=== PATIENT | female | born 1935 | race Caucasian/White ===

== ENCOUNTER 2022-12-24 06:21 | Day surgery (SDC) | payer OTHER ==
[2022-12-24] MEDS ORDERED: EPINEPHRINE/PF 1 MG/ML AMP ONE (07:05)
[2022-12-24] MEDS ORDERED: BSS OPTHALMIC SOL 15 ML OPTH ONE (07:05)
[2022-12-24] MEDS ORDERED: TOBRADEX 0.3-0.1% OPTH OINTMENT ONE (07:05)
[2022-12-24] MEDS ORDERED: BALANCED SALT IRRIG PLAIN 500 ML IRR ONE (07:05)
[2022-12-24] MEDS ORDERED: POVIDONE-IODINE 5% EYE DROPS ONE (07:06)
[2022-12-24] MEDS ORDERED: DUOVISC 1 KIT OPTH ONE (07:06)
[2022-12-24 07:08] LABS: Absolute Lymphocytes (CBC) 0.9 K/uL (0.7-4.9); Hematocrit 40.3 % (36.0-45.0); Lymphocytes % 13.5 % (15.3-44.8); MCV 91.1 fL (80-100); RBC Red Blood Cell Count 4.43 M/uL (3.86-4.86)
[2022-12-24] MEDS ORDERED: propofoL 200 MG/20 ML VIAL IV ONE (07:08)
[2022-12-24] MEDS ORDERED: LIDOCAINE 2% MPF 5 ML VIAL ONE (07:08)
[2022-12-24] MEDS ORDERED: FENTANYL CITR 100 MCG/2 ML ONE (07:10)
[2022-12-24] MEDS ORDERED: ONDANSETRON 4 MG/2 ML VIAL ONE (07:10)
[2022-12-24] MEDS ORDERED: NA CHLORIDE 0.9% 1,000 ML ONE (07:15)
[2022-12-24] MEDS: CYCLOPENTOLATE 2% OPTH 2 ML ONE ×3 (07:17→07:39)
[2022-12-24] MEDS: TROPICAMIDE 1% OPTH 3 ML BOT ONE ×3 (07:17→07:39)
[2022-12-24] MEDS: PHENYLEPHRINE 10% OPTH 5ML ONE ×3 (07:17→07:39)
[2022-12-24] MEDS: KETOROLAC OPTHALMIC 5 ML BOT ONE ×3 (07:17→07:39)
[2022-12-24] MEDS ORDERED: EPHEDRINE SULF 50 MG/ML VIAL ONE (07:53)
[2022-12-24 08:36] LABS: Potassium 3.8 mEq/L (3.5-5.1)
[2022-12-24 10:17] VITALS: BP 127/76; TEMP 97; O2SAT 98
--- NOTE | 2022-12-24 15:43 | EKG ---
Test Date: 2022-12-24 Test Time: 07:06:14 Diesel Dragline Operator: KELIN MEASUREMENT RESULTS: Intervals: Rate: 68 ME: 206 QRSD: 78 QT: 460 QTc: 489 [place]: P: 25 ME: 206 QRS: -55 T: -18 INTERPRETIVE STATEMENTS: Normal sinus rhythm Pulmonary disease pattern Left anterior fascicular block Inferior infarct, age undetermined Abnormal ECG Compared to ECG 12/24/2022 07:05:11 Left anterior fascicular block now present First degree AV block no longer present Left-axis deviation no longer present Myocardial infarct finding still present Electronically Signed On 12-24-22 15:42:46 CDT by Dimitrios Castellanos
--- NOTE | 2022-12-24 15:43 | EKG ---
Test Date: 2022-12-24 Test Time: 07:05:11 Frame Trimmer: KELIN MEASUREMENT RESULTS: Intervals: Rate: 68 TX: 218 QRSD: 72 QT: 406 QTc: 431 [place]: P: 24 TX: 218 QRS: -54 T: -22 INTERPRETIVE STATEMENTS: Sinus rhythm with 1st degree AV block Left axis deviation Inferior infarct, age undetermined Abnormal ECG No previous ECG available for comparison Electronically Signed On 12-24-22 15:42:52 CDT by Dimitrios Castellanos
--- NOTE | 2022-12-24 19:32 | OP ---
Date of Procedure: 12/24/2022 Surgeon: Gold Oconnor MD Legal Instruments Examiner: None. Preoperative Diagnosis: Cataract, right eye. Postoperative Diagnosis: Cataract, right eye. Procedure Performed: Cataract extraction, right eye with placement of toric lens. Description Of Procedure: After being identified in the preoperative holding area and marked with th e patient sitting upright, the patient was taken back to the operating room where a time-out was perf ormed. Patient was then placed under general anesthesia and prepped and draped in normal sterile fas hion. Examination of the eye underneath the operating microscope revealed a well dilated pupil with visual evidence of our preoperative alignment alvarez, still evident using a Power marker and a Sinske y hook. The Power marker was aligned with the preoperative alvarez and a kimo was made at 21 degrees for one of the toric lens. The globe was grasped with a pair of 0.12 forceps and paracentesis wounds were made in the 6 o'clock and 12 o'clock position. The anterior chamber was filled with Viscoat an d the main phaco incision wound was made temporally using a 2.75 mm keratome in a triplanar fashion. Using a cystotome, a continuous curvilinear capsulorrhexis was initiated and completed with Utrata f orceps. Hydrodissection and hydrodelineation of the lens material was carried out using a [place] renetta dana, resulting in free rotation of the lens nucleus. The lens was thereafter removed in a standard d ivide and conquer technique. Once all 4 quadrants had been removed, the phaco handpiece was exchange d for bimanual irrigation and aspiration of handpieces and all remaining cortical material was remove d and the capsular bag polished. The capsular bag was then filled with Provisc and an Usman model SN 6AT4, power 21.0 diopters, serial #[id number] was implanted in the capsular bag and rotated into pos ition at 21 degrees and thereafter, the remaining viscoelastic was removed using the bimanual irrigat ion aspiration handpieces. The wounds were hydrated with a 30-gauge cannula and intra-ocular BSS in order to ensure water tightness. This was tested with Weck-Maryjane and once I was satisfied that the wou nds were in fact watertight, the lid speculum and drapes were removed. The patient was patched over TobraDex ointment having tolerated the procedure well being under general anesthesia the entire time. She was taken to the postoperative holding area and she is to follow up with myself, Dr. Gold shukla, at the [facility] [place] tomorrow morning. There were no complications. No drains plac ed. Implants are as above. MONICA/DONNAL Voice ID: [id number] Report ID: [id number]
== END 2022-12-24 10:10 | disposition home or self-care (01) ==
LOC: OR 06:21
PROVIDERS: ATTEND Ophthalmology
PROC: 08RJ3JZ Replacement of Right Lens with Synthetic Substitute, Percutaneous Approach (ICD-10-PCS; principal; 2022-12-24 07:30)
DX: H25.011 Cortical age-related cataract, right eye (principal); H25.11 Age-related nuclear cataract, right eye
CPT/HCPCS: 93005 ×2; 85025; 80048; 36415; 66984; J2704; J0171; J1885; J2001; J3010; J2405; J7030